=== PATIENT | female | born 2000 | race Caucasian/White ===

== ENCOUNTER → 2025-01-14 15:39 | Outpatient (BNVA) | payer OTHER, SELFPAY | PROVIDERS: Visit Provider Psychiatry & Neurology Psychiatry | DX: F41.1 Generalized anxiety disorder (principal) | CPT/HCPCS: 80061; 83036 ==

== ENCOUNTER → 2025-02-25 15:53 | Outpatient (BNVA) | payer OTHER, SELFPAY ==
[2025-01-18 10:06] VITALS: BP 114/73; BMI 22.3
== END ==
DX: Z12.4 Encounter for screening for malignant neoplasm of cervix (principal)
CPT/HCPCS: 87624

== ENCOUNTER → 2025-06-15 15:56 | Outpatient (BNVA) | payer OTHER, SELFPAY ==
[2025-01-18 10:06] VITALS: BP 114/73; BMI 22.3
== END ==
DX: N91.5 Oligomenorrhea, unspecified (principal)
CPT/HCPCS: 80053; 83001; 84146; 84403; 84443; 85025

== ENCOUNTER → 2025-07-28 11:06 | Outpatient (BNVA) | payer OTHER, SELFPAY ==
[2025-01-18 10:06] VITALS: BP 114/73; BMI 22.3
== END ==
DX: Z01.419 Encounter for gynecological examination (general) (routine) without abnormal findings (principal)
CPT/HCPCS: 81025